=== PATIENT | female | born 1935 | race Caucasian/White ===

== ENCOUNTER 2016-06-24 08:27 | Day surgery (SDC) | payer MEDICARE ==
[~2016-06-24 08:27] MED LIST: DIPRIVAN 200 MG/20 ML IV ONE; Ketamine HCl 50 MG/ML IV ONE
--- NOTE | 2016-06-24 08:49 | HP ---
DATE OF SURGERY: 06/24/2016 HISTORY OF PRESENT ILLNESS: The patient is an 81 year-old with some upper esophageal dysphagia, trouble swallowing recently, in need of follow up upper endoscopy possible dilatation. She was cleared cardiac-matta by Dr. Coon. PAST MEDICAL HISTORY: Chronic obstructive pulmonary disease, hypercholesterolemia, hypertension, diabetes, coronary artery disease. She had a prior myocardial infarction years ago. MEDICATIONS: Plavix, metoprolol, pantoprazole, NovoLog, NitroStat PRN, Metformin, lisinopril, Glyburide, carvedilol, atorvastatin, aspirin, Albuterol inhaler. ALLERGIES: NKDA. FAMILY HISTORY: Hypertension, heart disease, diabetes. SOCIAL HISTORY: Former smoker. No recent smoking. No alcohol abuse. REVIEW OF SYSTEMS: Twelve systems reviewed per admission assessment. Thyroid nodule that has been followed by ultrasound, had prior benign biopsy. Benign follicular cyst. Stable ultrasound. She is not interested in any intervention regarding her thyroid nodule. Otherwise twelve systems reviewed. No chest pain or palpitations. She has B12 injections. PHYSICAL EXAMINATION: GENERAL: No acute distress. HEENT: Sclerae nonicteric. NECK: No JVD. No thyromegaly. CHEST: Breath sounds symmetrical. No audible wheeze. CVS: Regular rate and rhythm. ABDOMEN: Soft, nontender, nondistended. EXTREMITIES: No significant edema. NEURO: Alert, moving extremities grossly symmetrically. IMPRESSION: Dysphagia upper esophagus. Risks and benefits of EGD, possible biopsy, possible dilatation. Risks and benefits explained in detail including but not limited to bleeding or infection, small risk of bowel injury or perforation possibly requiring open procedure, small risk of missed or nondiagnosis or incomplete exam possibly requiring other studies. She also understands the possibility that even with dilatation may fail to improve her symptoms and may need repeat dilatation down the road. She understands and agrees to the planned procedure, will proceed with EGD possible dilatation as an outpatient.
[2016-06-24] MEDS ORDERED: Xopenex 1.25 MG/0.5 ML UD NEBULE IH ONE ×2 (08:59→09:14)
[2016-06-24] MEDS ORDERED: Sodium Chloride 3 ML UD NEBULES IH ONE (08:59)
[2016-06-24] MEDS ORDERED: Lactated Ringers 1,000 ML IV ONE (08:59)
[2016-06-24] MEDS ORDERED: Lactated Ringers 1,000 ML IV SCH (09:30)
[2016-06-24 11:54] VITALS: BP 123/71; PULSE 77; O2SAT 90
--- NOTE | 2016-06-25 12:51 | OP ---
SURGERY DATE/TIME: 06/24/2016 1022 PREOPERATIVE DIAGNOSIS: Dysphagia. POSTOPERATIVE DIAGNOSES: 1) Mild gastritis. 2) Small hiatal hernia. 3) Schatzki's ring distal esophagus. 4) Proximal esophageal narrowing as well. PROCEDURES: 1) EGD with cold biopsy of the antrum to evaluate for Helicobacter pylori. 2) Esophageal balloon dilatation distal esophagus (size 20 balloon dilator). 3) Esophageal dilatation proximal esophagus (size 20 balloon dilator). SURGEON: Dr. Tj Murphy. ANESTHESIA: MAC. ESTIMATED BLOOD LOSS: Minimal. INDICATIONS: As noted above. Risks and benefits explained in detail and not limited to and consent obtained. DESCRIPTION OF PROCEDURE AND FINDINGS: The patient was taken to the endoscopy room. She denied any further questions. MAC anesthesia induced. Bite block positioned. Video gastroscope easily passed down the esophagus through the patent pylorus. It should be noted there is a narrowed area. She is having symptoms passing down through the esophagus. The scope was able to be passed through here. She was having symptoms and this was narrowed. It was felt she would benefit from dilatation procedure. Additionally in the more distal esophagus she had Schatzki's ring just below the gastroesophageal junction. The gastroesophageal junction is about 34 cm. Otherwise there were no signs of any Morales's. No signs of esophagitis. The scope was able to be passed down through the patent pylorus to the junction of the second and third portion of the duodenum. Duodenum and duodenal bulb grossly unremarkable. Back in the stomach she had some mild gastritis. Cold biopsy taken of the antrum for YASEMIN-test. Otherwise there were no signs of any ulcers or any other mucosal lesions. On retroflexion there is a very small slight hiatal hernia possibly 1.0 to 1.5 cm. Otherwise no signs of any other mucosal lesions. The scope was carefully withdrawn. Gastroesophageal junction 34 cm. The patient did have Schatzki's ring. It was felt she would benefit from balloon dilatation. The balloon catheter was carefully inserted back in the stomach and then pulled back up to the distal esophagus Schatzki's ring area. It was then inflated to size 19 balloon dilator about 45 seconds to a minute and then inflated up to size 20 balloon dilator for about 2 minutes and then withdrawn. The balloon dilator was then pulled up to the narrowed area where the patient is having most of her symptoms in the proximal esophagus. The wound is carefully inflated to size 18 initially for about 45 seconds. She coughed the balloon up once. It required deflation and passing the scope back down in the stomach. Passed the balloon catheter back down in there and gradually pulling it back up to the narrowed area proximal esophagus. It was then inflated to size 19 for about 45 seconds to a minute and then finally size 20 balloon dilator for 2 minutes. The balloon was then released. Balloon catheter removed. The scope passed back down into the stomach. Slowly and carefully withdrawn. The distal esophageal dilatation appeared to be more widely patent where the Schatzki's ring had been dilated as well as the scope pulled back up to proximal esophageal dilatation. There was superficial abrasion secondary to dilatation but no evidence of any full thickness injury secondary to wound dilatation. Both areas were much more widely patent. The scope is withdrawn. The patient tolerated the procedure well. There were no immediate complications. Findings discussed with the family out in the waiting area.
== END 2016-06-24 12:00 | disposition home or self-care (01) ==
LOC: SDC 08:27
PROVIDERS: ATTEND Surgery
PROC: 0DB68ZX Excision of Stomach, Via Natural or Artificial Opening Endoscopic, Diagnostic (ICD-10-PCS; principal; 2016-06-24)
PROC: 0D718ZZ Dilation of Upper Esophagus, Via Natural or Artificial Opening Endoscopic (ICD-10-PCS; 2016-06-24)
PROC: 0D738ZZ Dilation of Lower Esophagus, Via Natural or Artificial Opening Endoscopic (ICD-10-PCS; 2016-06-24)
DX: K29.70 Gastritis, unspecified, without bleeding (principal); K44.9 Diaphragmatic hernia without obstruction or gangrene; K22.2 Esophageal obstruction; J44.9 Chronic obstructive pulmonary disease, unspecified; E78.00 Pure hypercholesterolemia, unspecified; I10 Essential (primary) hypertension; E11.9 Type 2 diabetes mellitus without complications; Z79.4 Long term (current) use of insulin; I25.10 Atherosclerotic heart disease of native coronary artery without angina pectoris; I25.2 Old myocardial infarction; Z79.899 Other long term (current) drug therapy
CPT/HCPCS: 87081; 94640; 43239; 43249; C1726; 00740; 99100; J2704; A9270-GY

== ENCOUNTER 2016-08-26 11:20 | Inpatient (IN) | payer MEDICARE ==
[2016-08-26] MEDS ORDERED: Zithromax 500 MG/ 250 ML NaCl Premix 500 MG/250 ML IVPB IV STA (11:23)
[2016-08-26] MEDS ORDERED: PROVENTIL 2.5 MG/3 ML NEB IH ONE ×2 (11:23→11:35)
[2016-08-26] MEDS ORDERED: ROCEPHIN 1 Gm-D5w 50 ml Bag** 1 G/50 ML IVPB IV STA (11:23)
[2016-08-26] MEDS ORDERED: solu-MEDROL 125 MG IV ONE (11:23)
[2016-08-26 11:31] LABS: VBG BASE EXCESS 4.4 (-2.0-2.0); VBG CARBOXYHEMOGLOBIN 2.1 % T HGB (0.0-6.9); VBG HCO3- 31.2 meq/L (22-28); VBG O2 SATURATION 73.6 (95-100); VBG pH 7.37 (7.32-7.42)
[2016-08-26] MEDS ORDERED: ROCEPHIN 1 Gm-D5w 50 ml Bag** 1 G/50 ML IVPB IV ONE (11:42)
[2016-08-26] MEDS ORDERED: Zithromax 500 MG/ 250 ML NaCl Premix 500 MG/250 ML IVPB IV ONE (11:42)
[2016-08-26] MEDS ORDERED: solu-MEDROL 125 MG ONE (11:42)
[2016-08-26 11:51] LABS: Bilirubin NEGATIVE (NEGATIVE); Blood 50 Ery/ul (0-5); COMPLETE URINE MICROSCOPIC? YES; Collection Type CATH; Glucose NEGATIVE (NEGATIVE); Leukocyte Esterase NEGATIVE (NEGATIVE)
[2016-08-26 11:53] LABS: BASOPHIL % 0.4 % (0.0-0.4); Eosinophil % 3.1 % (0.00-5.0); Granulocytes % 65.9 % (36.0-66.0); Lymphocytes % 23.2 % (24.0-44.0); Mean Cell Volume 92.1 fl (78-100); Mean Corpuscular Hemoglobin 30.9 pg (26-32); Mean Platelet Volume 9.9 fl (6-9.5); Monocytes % 7.4 % (0.0-12.0); Platelet Count 132 K/mm3 (150-450); Red Blood Count 4.69 M/mm3 (4.1-5.4); Red Cell Distribution Width 13.8 % (11.5-14.0); White Blood Count 5.6 K/mm3 (4.0-10.5)
--- NOTE | 2016-08-26 11:58 | XRAY ---
Indication: Cough and wheezing. Comparison: May 25, 2016. Portable chest unchanged again with left base atelectasis/scarring and hilar calcified nodes. Right lung clear. Heart is not enlarged. Bony thorax intact again with mild osteopenia and degenerative changes. Impression: Stable nonacute chest with chronic features.
[2016-08-26 12:10] LABS: Bacteria FEW /HPF (NEGATIVE); Epithelial Cells FEW /HPF (FEW)
[2016-08-26 12:11] LABS: ADD URINE CULTURE? NO (NO)
[2016-08-26 12:20] LABS: ALKALINE PHOSPHATASE 71 U/L (46-116); ANION GAP 13.4 MEQ/L (5-15); BLOOD UREA NITROGEN 8 mg/dL (9-20); CHLORIDE 101 mEq/L (98-107); Carbon Dioxide 29.5 mEq/L (21-32); Glucose 154 MG/DL (70-110); MAGNESIUM 1.5 mg/dL (1.8-2.4); Potassium 3.9 mEq/L (3.5-5.1); SGOT/AST 16 U/L (15-37); SGPT/ALT 8 U/L (12-78); SODIUM 140 mEq/L (136-145); Total Protein 7.8 gm/dL (6.4-8.2)
--- NOTE | 2016-08-26 12:52 | ERPHSYRPT ---
- History of Present Illness Time Seen by Provider: 08/26/16 11:23 Source: patient, EMS (gave ana TSO) Patient Subjective Stated Complaint: PT HERE FOR COUGH FOR 2 WEEKS, WITH LOW GRADE FEVER Triage Nursing Assessment: PT ALERT, RESP EASY, CHEST WITH WHEEZES, NO EDEMA. SKIN W/D PINK Physician History: CC: short of air Hx: 81 y/o patient of Dr Castaneda. She has hx of DM, COPD, CHF. She has increased dyspena, wheezing. She uses home oxygen. No chest pain. Some chills and has productive cough. Shortness of breathing inreasing so came to ER. Allergies/Adverse Reactions: No Known Drug Allergies Allergy (Verified 08/26/16 11:29) Home Medications: Sertraline HCl 100 mg [Zoloft 100 MG] 150 mg PO DAILY 11/12/11 [History] Atorvastatin Calcium 20 mg PO HS 12/20/13 [History] Lisinopril 5 mg PO DAILY 12/20/13 [History] Carvedilol 3.125 mg [Coreg 3.125 MG] 2 tab PO BID 02/17/15 [History] Clopidogrel Bisulfate 75 mg [PLAVIX 75 MG Tablet] 75 mg PO HS 02/17/15 [ History] Metformin HCl 500 mg [Glucophage 500 MG] 500 mg PO BID 02/17/15 [History] Pantoprazole 20 mg [Protonix 20MG Tablet] 20 mg PO DAILY 02/17/15 [History ] Albuterol 8 gm Mdi Hfa [Ventolin Hfa MDI] 8 gm IH QID PRN 04/05/15 [ History] Aspirin 1 tablet PO DAILY 06/24/16 [History] Metoclopramide HCl 10 mg [Reglan 10 MG] 1 tablet PO BID 06/24/16 [History] Pantoprazole 20 mg [Protonix 20MG Tablet] 1 tablet PO DAILY 06/24/16 [ History] Potassium Chloride 10 Meq Tab* [Klor Con 10 MEQ] 1 tablet PO DAILY 06/24/16 [ History] Sertraline HCl [Zoloft] 150 mg PO DAILY 06/24/16 [History] Hx Tetanus, Diphtheria Vaccination/Date Given: Yes Hx Influenza Vaccination/Date Given: Yes Hx Pneumococcal Vaccination/Date Given: Yes Immunizations Up to Date: Yes - Review of Systems Constitutional: Chills, Fatigue, Malaise, Weakness, No Fever Eyes: No Symptoms Ears, Nose, & Throat: No Symptoms Respiratory: Cough, Dyspnea Cardiac: No Chest Pain Abdominal/Gastrointestinal: No Abdominal Pain, No Nausea, No Vomiting, No Diarrhea Genitourinary Symptoms: No Dysuria Skin: No Rash Neurological: No Headache All Other Systems: Reviewed and Negative - Past Medical History Pertinent Past Medical History: Yes Neurological History: TIA ENT History: Cataracts Cardiac History: Coronary Artery Disease, High Cholesterol, Hypertension, Myocardial Infarction ([place]) Respiratory History: Asthma, COPD, Emphysema Endocrine Medical History: Diabetes Type II Musculoskeletal History: Osteoarthritis, Osteoporosis GI Medical History: GERD, GI Bleed, Ulcer History: No Pertinent History Psycho-Social History: Anxiety, Depression Female Reproductive Disorders: No Pertinent History, Breast Cancer Other Medical History: states dr borges removed breast ca from both breasts 25 yrs ago; lumps removed from bilateral breasts. - Past Surgical History Past Surgical History: Yes Neuro Surgical History: No Pertinent History Cardiac: Cardiac Catheterization, Cardiac Stent Respiratory: No Pertinent History Gastrointestinal: Appendectomy, Other Genitourinary: No Pertinent History Musculoskeletal: Orthopedic Surgery, Other Female Surgical History: Lumpectomy, Other Other Surgical History: juan alberto ovaries removed,juan alberto cataracts with implants, knee surgery for torn meniscus. right eye phacoemulsification with lens implant; abdominal surgery involving bleeding vein repair; bunion removal left foot. , left knee cap tumors removed - Social History Smoking Status: Former smoker How long have you smoked: 10 years Exposure to second hand smoke: No Drug Use: none Patient Lives Alone: No - Female History Hx Last Menstrual Period: POST - Nursing Vital Signs Nursing Vital Signs: Initial Vital Signs Temperature Source Rectal Pulse Rate 71 Respiratory Rate 16 Blood Pressure [] 135/64 Pain Intensity 0 - Physical Exam General Appearance: alert, other (mildly breathless) Eye Exam: PERRL/EOMI Neck Exam: normal inspection, non-tender, supple Respiratory Exam: wheezing (diffusely) Cardiovascular/Chest Exam: regular rate/rhythm Abdominal/Gastrointestinal Exam: soft, No tenderness, No distention Extremity Exam: no pedal edema Neurologic Exam: alert, oriented x 3, cooperative, sensation nml, No motor deficits Skin Exam: warm, dry, No rash SpO2 Interpretation: normal SpO2: 96 Oxygen Delivery: Room Air - Course Nursing assessment & vital signs reviewed: Yes EKG Interpreted by Me: RATE (81), Sinus Rhythm, 1st degree AV Block, Non- specific ST Changes - Radiology Exams cxr X-ray Interpretation: Teleradiologist Report, Negative (stable COPD) Ordered Tests: Active Orders 24 hr Category Date Time Status Food Service Team Member STAT Care 08/26/16 11:23 Active Cath for Specimen-Straight STAT Care 08/26/16 11:23 Active EKG-ER Only STAT Care 08/26/16 11:23 Active IV Insertion STAT Care 08/26/16 11:23 Active Oxygen-ED Only NASAL CANNULA 2 lpm Care 08/26/16 11:23 Active CHEST 1 VIEW (PORTABLE) Stat Exams 08/26/16 11:23 Completed BLOOD CULTURE Stat Lab 08/26/16 11:48 Received CBC W DIFF Stat Lab 08/26/16 11:48 Completed CMP Stat Lab 08/26/16 11:48 Completed Lactic Acid Stat Lab 08/26/16 11:30 Completed MAGNESIUM Stat Lab 08/26/16 11:48 Completed UA W/ MICROSCOPIC Stat Lab 08/26/16 11:48 Completed VENOUS BLOOD GAS Stat Lab 08/26/16 11:30 Completed Respiratory Nebulizer STAT RT 08/26/16 11:25 Completed Medication Summary Discontinued Medications Generic Name Dose Route Start Last Admin Trade Name Freq PRN Reason Stop Dose Admin Albuterol Sulfate 2.5 mg 08/26/16 11:23 08/26/16 11:39 Proventil 2.5 Mg/3 Ml Neb IH 08/26/16 11:24 2.5 mg STAT ONE Administration Albuterol Sulfate Confirm 08/26/16 11:35 Proventil 2.5 Mg/3 Ml Neb Administered 08/26/16 11:36 Dose 2.5 mg IH .STK-MED ONE Ceftriaxone Sodium/Dextrose 1 g in 50 mls @ 100 mls/hr 08/26/16 11:23 11:49 Rocephin 1 Gm-D5w 50 Ml Bag IV 08/26/16 11:52 100 mls/hr STAT STA Administration Azithromycin 500 mg in 250 mls @ 250 mls/hr 08/26/16 11:23 08/26/16 12:02 Zithromax 500 Mg/ 250 Ml Nacl Premix IV 08/26/16 12:22 250 mls/hr STAT STA Administration Azithromycin Confirm 08/26/16 11:42 Zithromax 500 Mg/ 250 Ml Nacl Premix Administered 08/26/16 11:43 Dose 500 mg in 250 mls @ ud IV .STK-MED ONE Ceftriaxone Sodium/Dextrose Confirm 08/26/16 11:42 Rocephin 1 Gm-D5w 50 Ml Bag Administered 08/26/16 11:43 Dose 1 g in 50 mls @ ud IV .STK-MED ONE Methylprednisolone Sodium Succinate 125 mg 08/26/16 11:23 08/26/16 11:50 Solu-Medrol 125 Mg IV 08/26/16 11:24 125 mg STAT ONE Administration Methylprednisolone Sodium Succinate Confirm 08/26/16 11:42 Solu-Medrol 125 Mg Administered 08/26/16 11:43 Dose 125 mg .ROUTE .STK-MED ONE Lab/Rad Data: Laboratory Result Diagrams 08/26/16 11:48 08/26/16 11:48 Laboratory Results 08/26/16 08/26/16 08/26/16 Range/Units 11:48 11:48 11:48 WBC 5.6 (4.0-10.5) K/mm3 RBC 4.69 (4.1-5.4) M/mm3 Hgb 14.5 (12.0-16.0) gm/dl Hct 43.2 (35-47) % MCV 92.1 (78-100) fl MCH 30.9 (26-32) pg MCHC 33.6 (32-36) g/dl RDW 13.8 (11.5-14.0) % Plt Count 132 L (150-450) K/mm3 MPV 9.9 H (6-9.5) fl Gran % 65.9 (36.0-66.0) % Lymphocytes % 23.2 L (24.0-44.0) % Monocytes % 7.4 (0.0-12.0) % Eosinophils % 3.1 (0.00-5.0) % Basophils % 0.4 (0.0-0.4) % Basophils # 0.02 (0-0.4) VBG pH (7.32-7.42) VBG pCO2 at Pat Temp (42-55) mm/Hg VBG pO2 at Pat Temp (25-40) mm/Hg VBG HCO3 (22-28) meq/L VBG O2 Sat (Dorothea) (95-100) VBG Base Excess (-2.0-2.0) VBG Hemoglobin VBG Carboxyhemoglobin (0.0-6.9) % T HGB POC Potassium (3.5-5.1) Sodium 140 (136-145) mEq/L Potassium 3.9 (3.5-5.1) mEq/L Chloride 101 (98-107) mEq/L Carbon Dioxide 29.5 (21-32) mEq/L Anion Gap 13.4 (5-15) MEQ/L BUN 8 L (9-20) mg/dL Creatinine 0.60 (0.55-1.30) mg/dl Estimated GFR > 60 ML/MIN Glucose 154 H (70-110) MG/DL Lactic Acid (0.4-2.0) Calcium 9.2 (8.5-10.1) mg/dL Magnesium 1.5 L (1.8-2.4) mg/dL Total Bilirubin 0.90 (0.2-1.0) mg/dL AST 16 (15-37) U/L ALT 8 L (12-78) U/L Alkaline Phosphatase 71 (46-116) U/L Serum Total Protein 7.8 (6.4-8.2) gm/dL Albumin 4.0 (3.4-5.0) g/dL Ur Collection Type CATH Urine Color YELLOW (YELLOW) Urine Appearance CLEAR (CLEAR) Urine pH 5.0 (5-6) Ur Specific Rector 1.010 (1.005-1.025) Urine Protein NEGATIVE (Negative) Urine Ketones NEGATIVE (NEGATIVE) Urine Blood 50 (0-5) Keith/ul Urine Nitrite NEGATIVE (NEGATIVE) Urine Bilirubin NEGATIVE (NEGATIVE) Urine Urobilinogen NORMAL (0-1) mg/dL Ur Leukocyte Esterase NEGATIVE (NEGATIVE) Urine Microscopic RBC 5-10 (0-2) /HPF Ur Epithelial Cells FEW (FEW) /HPF Urine Bacteria FEW (NEGATIVE) /HPF Urine Glucose NEGATIVE (NEGATIVE) mg/dL Specimen Received 08/26/16 1145 08/26/16 Range/Units 11:30 WBC (4.0-10.5) K/mm3 RBC (4.1-5.4) M/mm3 Hgb (12.0-16.0) gm/dl Hct (35-47) % MCV (78-100) fl MCH (26-32) pg MCHC (32-36) g/dl RDW (11.5-14.0) % Plt Count (150-450) K/mm3 MPV (6-9.5) fl Gran % (36.0-66.0) % Lymphocytes % (24.0-44.0) % Monocytes % (0.0-12.0) % Eosinophils % (0.00-5.0) % Basophils % (0.0-0.4) % Basophils # (0-0.4) VBG pH 7.37 (7.32-7.42) VBG pCO2 at Pat Temp 54 (42-55) mm/Hg VBG pO2 at Pat Temp 38 (25-40) mm/Hg VBG HCO3 31.2 H* (22-28) meq/L VBG O2 Sat (Dorothea) 73.6 L (95-100) VBG Base Excess 4.4 H (-2.0-2.0) VBG Hemoglobin 15.0 VBG Carboxyhemoglobin 2.1 (0.0-6.9) % T HGB POC Potassium 4.0 (3.5-5.1) Sodium (136-145) mEq/L Potassium (3.5-5.1) mEq/L Chloride (98-107) mEq/L Carbon Dioxide (21-32) mEq/L Anion Gap (5-15) MEQ/L BUN (9-20) mg/dL Creatinine (0.55-1.30) mg/dl Estimated GFR ML/MIN Glucose (70-110) MG/DL Lactic Acid 1.0 (0.4-2.0) Calcium (8.5-10.1) mg/dL Magnesium (1.8-2.4) mg/dL Total Bilirubin (0.2-1.0) mg/dL AST (15-37) U/L ALT (12-78) U/L Alkaline Phosphatase (46-116) U/L Serum Total Protein (6.4-8.2) gm/dL Albumin (3.4-5.0) g/dL Ur Collection Type Urine Color (YELLOW) Urine Appearance (CLEAR) Urine pH (5-6) Ur Specific Rector (1.005-1.025) Urine Protein (Negative) Urine Ketones (NEGATIVE) Urine Blood (0-5) Keith/ul Urine Nitrite (NEGATIVE) Urine Bilirubin (NEGATIVE) Urine Urobilinogen (0-1) mg/dL Ur Leukocyte Esterase (NEGATIVE) Urine Microscopic RBC (0-2) /HPF Ur Epithelial Cells (FEW) /HPF Urine Bacteria (NEGATIVE) /HPF Urine Glucose (NEGATIVE) mg/dL Specimen Received - Progress Progress Note: 08/26/16 12:51 She was given nebs and abtx. Paged Dr Castaneda for admission. 08/26/16 13:[address] Castaneda for observation. Counseled pt/family regarding: lab results, diagnosis, need for follow-up, rad results - Departure Time of Disposition: 13:07 Departure Disposition: Observation Clinical Impression: COPD exacerbation Condition: Stable Critical Care Time: No Referrals: HAMLET CASTANEDA MD [Primary Care Provider] -
[2016-08-26] MEDS ORDERED: TYLENOL 325 MG PO PRN (13:24)
[2016-08-26] MEDS: DUONEB 0.5-3 MG/3 ml Neb IH SCH ×3 (15:36→23:12)
[2016-08-26] MEDS: NovoLOG Insulin SQ PRN ×2 (16:28→21:32)
[2016-08-26] MEDS: Reglan 10 MG PO SCH (16:28)
--- NOTE | 2016-08-26 16:33 | PCM.HP ---
History of Present Illness - Chief Complaint Chief Complaint: COPD exacerbation, diabetes History of Present Illness: is a 81 year old female who presented to the ER with a 2 day history of progressively worsening shortness of breath and cough. She felt very short of breath and was unable to breath well so called for an ambulance today. She denies fever, has thick sputum and is unable to produce much sputum. - Review of Systems Constitutional: No Fever, No Chills Respiratory: Cough, Short Of Breath, Wheezing Cardiac: No Chest Pain, No Edema, No Syncope Genitourinary Symptoms: No Dysuria Skin: No Rash All Other Systems: Reviewed and Negative Medications & Allergies Home Medications: Home Medication List Lisinopril 5 mg PO BID 12/20/13 [History Confirmed 08/26/16] Clopidogrel Bisulfate 75 mg [PLAVIX 75 MG Tablet] 75 mg PO HS 02/17/15 [ History Confirmed 08/26/16] Metformin HCl 500 mg [Glucophage 500 MG] 500 mg PO BID 02/17/15 [History Confirmed 08/26/16] Pantoprazole 20 mg [Protonix 20MG Tablet] 20 mg PO DAILY 02/17/15 [ History Confirmed 08/26/16] Albuterol 8 gm Mdi Hfa [Ventolin Hfa MDI] 8 gm IH QID PRN 04/05/15 [ History Confirmed 08/26/16] Aspirin 1 tablet PO DAILY 06/24/16 [History Confirmed 08/26/16] Metoclopramide HCl 10 mg [Reglan 10 MG] 1 tablet PO BID 06/24/16 [History Confirmed 08/26/16] Potassium Chloride 10 Meq Tab* [Klor Con 10 MEQ] 1 tablet PO DAILY 06/24/16 [ History Confirmed 08/26/16] Sertraline HCl [Zoloft] 150 mg PO DAILY 06/24/16 [History Confirmed 08/26/16] Glyburide 5 mg [Micronase 5 MG] 5 mg PO DAILY 08/26/16 [History Confirmed 08/26/16] Allergies/Adverse Reactions: Allergies Allergy/AdvReac Type Severity Reaction Status Date / Time No Known Drug Allergies Allergy Verified 08/26/16 11:29 - Past Medical History Past Medical History: Yes Neurological History: TIA ENT History: Cataracts Cardiac History: Coronary Artery Disease, High Cholesterol, Hypertension, Myocardial Infarction ([place]) Respiratory History: Asthma, COPD, Emphysema Endocrine Medical History: Diabetes Type II Musculoskelatal History: Osteoarthritis, Osteoporosis GI Medical History: GERD, GI Bleed, Ulcer History: No Pertinent History Pyscho-Social History: Anxiety, Depression Reproductive Disorders: No Pertinent History Comment: states dr borges removed lumps from both breasts 25 yrs ago; lumps removed from bilateral breasts. - Female History Hx Last Menstrual Period: POST Are you now?: No - Past Surgical History Past Surgical History: Yes Neuro Surgical History: No Pertinent History Cardiac History: Cardiac Catheterization, Cardiac Stent Respiratory Surgery: No Pertinent History GI Surgical History: Appendectomy, Other Genitourinary Surgical Hx: No Pertinent History Musculskeletal Surgical Hx: Orthopedic Surgery, Other Female Surgical History: Lumpectomy, Other Other Surgical History: juan alberto ovaries removed,juan alberto cataracts with implants, knee surgery for torn meniscus; abdominal surgery involving bleeding vein repair; bunion removal left foot. ,left knee cap tumors removed - Social History Smoking Status: Never smoker How long have you smoked: 10 years Exposure to second hand smoke: Yes Alcohol: None Drug Use: none - Physical Exam Vital Signs: Vital Signs - 24 hr Temp Pulse Resp BP Pulse Ox 08/26/16 15:41 86 22 94 L 08/26/16 13:27 97.4 F 84 16 150/70 92 L 08/26/16 13:20 86 16 136/69 94 L 08/26/16 13:07 96 08/26/16 12:45 71 16 135/64 96 08/26/16 11:54 76 24 94 L 08/26/16 11:28 22 90 L 08/26/16 11:23 90 180/87 90 L Oxygen-Last 24 hours O2 Percentage 2 Liters = 28% O2 Percentage 2 Liters = 28% O2 Percentage 2 Liters = 28% General Appearance: no apparent distress, alert Eye Exam: PERRL/EOMI, eyes nml inspection Respiratory Exam: wheezing, No crackles/rales, No rhonchi Cardiovascular Exam: regular rate/rhythm, normal heart sounds, normal peripheral pulses Gastrointestinal/Abdomen Exam: soft, normal bowel sounds, No tenderness, No mass Extremity Exam: normal inspection, normal range of motion, pelvis stable Skin Exam: normal color, warm, dry, No rash Results - Other Procedures and Tests Respiratory Therapy 08/26/16 15:00 Respiratory Nebulizer Q4H Assessment/Plan (1) COPD exacerbation Current Visit: Yes Status: Acute Assessment & Plan: patient on rocephin/zithromax, IV solumedrol 80mg IV q6 hrs and duoneb treatments at this time. Code(s): J44.1 - CHRONIC OBSTRUCTIVE PULMONARY DISEASE W (ACUTE) EXACERBATION (2) Diabetes Current Visit: No Status: Acute Assessment & Plan: will treat with SSI, sugars high at this time secondary to IV solu medrol Code(s): E11.9 - TYPE 2 DIABETES MELLITUS WITHOUT COMPLICATIONS (3) DVT prophylaxis Current Visit: Yes Status: Acute Assessment & Plan: Lovenox 40mg daily ordered Code(s): QXA0603 -
[2016-08-26] MEDS: Zestril 5 MG PO SCH (21:27)
[2016-08-26] MEDS: PLAVIX 75 MG Tablet PO SCH (21:27)
[2016-08-26] MEDS: Pepcid 20 MG VIAL IV SCH (21:27)
[2016-08-26] MEDS: solu-MEDROL 125 MG IV SCH (21:30)
[2016-08-27] MEDS: DUONEB 0.5-3 MG/3 ml Neb IH SCH ×6 (03:07→23:12)
[2016-08-27 05:17] LABS: Mean Cell Volume 91.5 fl (78-100); Mean Corpuscular Hemoglobin 30.7 pg (26-32); Mean Platelet Volume 10.1 fl (6-9.5); Platelet Count 144 K/mm3 (150-450); Red Blood Count 4.49 M/mm3 (4.1-5.4); Red Cell Distribution Width 13.4 % (11.5-14.0); White Blood Count 5.4 K/mm3 (4.0-10.5)
[2016-08-27 05:43] LABS: ALBUMIN 3.9 g/dL (3.4-5.0); ALKALINE PHOSPHATASE 66 U/L (46-116); ANION GAP 15.3 MEQ/L (5-15); BLOOD UREA NITROGEN 10 mg/dL (9-20); CHLORIDE 100 mEq/L (98-107); Carbon Dioxide 28.2 mEq/L (21-32); Glucose 239 MG/DL (70-110); SGOT/AST 11 U/L (15-37); SODIUM 140 mEq/L (136-145); Total Protein 7.6 gm/dL (6.4-8.2)
[2016-08-27] MEDS: solu-MEDROL 125 MG IV SCH ×3 (05:45→21:24)
[2016-08-27 05:57] LABS: SGPT/ALT 11 U/L (12-78)
[2016-08-27] MEDS: NovoLOG Insulin SQ PRN ×4 (07:05→21:21)
[2016-08-27] MEDS: Reglan 10 MG PO SCH ×2 (07:05→16:18)
[2016-08-27 07:17] LABS: Total Cells Counted 100
[2016-08-27 07:18] LABS: ANISOCYTOSIS 1+; Platelet Estimate NORMAL (NORMAL); Poikilocytosis 1+; Polychromasia 1+
[2016-08-27] MEDS: Klor Con 10 MEQ PO SCH (08:12)
[2016-08-27] MEDS: ENOXAPARIN SODIUM SQ SCH (08:12)
[2016-08-27] MEDS: ZOLOFT 50 MG TABLET PO SCH (08:12)
[2016-08-27] MEDS: Zestril 5 MG PO SCH ×2 (08:13→21:22)
[2016-08-27] MEDS: Pepcid 20 MG VIAL IV SCH ×2 (08:13→21:24)
[2016-08-27] MEDS: Protonix 20MG Tablet PO SCH (08:13)
[2016-08-27] MEDS: ROCEPHIN 1 Gm-D5w 50 ml Bag** 1 G/50 ML IVPB IV SCH (08:13)
[2016-08-27] MEDS: ECOTRIN 81 MG PO SCH (08:13)
[2016-08-27] MEDS: Zithromax 500 MG/ 250 ML NaCl Premix 500 MG/250 ML IVPB IV SCH (08:14)
--- NOTE | 2016-08-27 09:20 | PCM.NOTE ---
Date and Time: 08/27/16913 Subjective Assessment: She reports she is feeling better than when she came into the hospital. She usually wears 3 L of oxygen at home. She reports a decreased appetite this Am. She reports her cough is productive of clear thick sputum. She lives by herself usually. She felt like she was weak and just not thinking as well when she got sick. - Review of Systems Constitutional: Weakness Eyes: No Symptoms Ears, Nose, & Throat: No Symptoms Respiratory: Cough, Short Of Breath, Wheezing Cardiac: No Symptoms Abdominal/Gastrointestinal: Appetite Changes Genitourinary Symptoms: No Symptoms Musculoskeletal: Other (middle finger with trigger finger (gets stuck down)) Skin: No Symptoms Objective Exam General Appearance: no apparent distress, alert, other (smiling, talkative) Neurologic Exam: alert, cooperative, normal mood/affect Skin Exam: normal color, warm, dry, No rash Respiratory Exam: other (scattered wheezes and decreased breath sounds at bases , equal breath sounds bilat, no crackles) Cardiovascular Exam: regular rate/rhythm, normal heart sounds, No murmur, No friction rub, No gallop Gastrointestinal/Abdomen Exam: soft, normal bowel sounds, No tenderness, No distention, No mass, No guarding Extremity Exam: other (no c/c/e, skyla hose in place) OBJECTIVE DATA Vital Signs: Vital Signs - 24 hr Temp Pulse Resp BP Pulse Ox 08/27/16 08:00 16 08/27/16 07:00 97.8 F 84 16 150/108 95 08/27/16 04:00 20 08/27/16 03:37 98.0 F 80 20 140/79 08/27/16 03:08 80 20 95 08/27/16 00:00 98.1 F 78 20 145/67 97 08/26/16 23:12 73 18 97 08/26/16 19:58 87 18 95 08/26/16 19:43 97.6 F 84 18 130/60 95 08/26/16 16:00 97.8 F 73 20 148/67 95 08/26/16 15:41 86 22 94 L 08/26/16 13:27 97.4 F 84 16 150/70 92 L 08/26/16 13:20 86 16 136/69 94 L 08/26/16 13:07 96 08/26/16 12:45 71 16 135/64 96 07/03/17 11:54 76 24 94 L 08/26/16 11:28 22 90 L 08/26/16 11:23 90 180/87 90 L Oxygen-Last 24 hours O2 Percentage 2 Liters = 28% O2 Percentage 3 Liters = 32% O2 Percentage 2 Liters = 28% O2 Percentage 3 Liters = 32% O2 Percentage 2 Liters = 28% O2 Percentage 2 Liters = 28% O2 Percentage 2 Liters = 28% O2 Percentage 2 Liters = 28% Pain Assessment - Last Documented Pain Intensity 0 Pain Scale Used 0-10 Pain Scale Intake and Output: Intake & Output 08/25/16 08/26/16 08/27/16 08/28/16 06:59 06:59 06:59 06:59 Intake Total 820 240 Output Total 1300 Balance -480 240 Weight 75.841 kg Lab Results: Accuchecks Date 08/27/16 Date 08/26/16 Time 07:07 Accucheck Value: 238 Accucheck Value: 198 Accucheck Value: 278 Lab Results-Last 24 Hours 08/27/16 08/27/16 Range/Units 04:50 04:50 WBC 5.4 (4.0-10.5) K/mm3 RBC 4.49 (4.1-5.4) M/mm3 Hgb 13.8 (12.0-16.0) gm/dl Hct 41.1 (35-47) % MCV 91.5 (78-100) fl MCH 30.7 (26-32) pg MCHC 33.6 (32-36) g/dl RDW 13.4 (11.5-14.0) % Plt Count 144 L (150-450) K/mm3 MPV 10.1 H (6-9.5) fl Segmented Neutrophils 92 H (36.0-66.0) % Lymphocytes (Manual) 7 L (24-44) % Monocytes (Manual) 1 (0.0-12.0) % Differential Comment ABNORMAL Platelet Estimate NORMAL (NORMAL) Polychromasia 1+ Poikilocytosis 1+ Anisocytosis 1+ Sodium 140 (136-145) mEq/L Potassium 4.0 (3.5-5.1) mEq/L Chloride 100 (98-107) mEq/L Carbon Dioxide 28.2 (21-32) mEq/L Anion Gap 15.3 H (5-15) MEQ/L BUN 10 (9-20) mg/dL Creatinine 0.71 (0.55-1.30) mg/dl Estimated GFR > 60 ML/MIN Glucose 239 H (70-110) MG/DL Calcium 9.3 (8.5-10.1) mg/dL Total Bilirubin 0.40 (0.2-1.0) mg/dL AST 11 L (15-37) U/L ALT 11 L (12-78) U/L Alkaline Phosphatase 66 (46-116) U/L Serum Total Protein 7.6 (6.4-8.2) gm/dL Albumin 3.9 (3.4-5.0) g/dL Assessment/Plan (1) COPD exacerbation Current Visit: Yes Status: Acute Assessment & Plan: Continue ceftriaxone and azithromycin and wean solumedrol to 60 mg IV q 8 hr. Continue breathing treatments and oxygen. Code(s): J44.1 - CHRONIC OBSTRUCTIVE PULMONARY DISEASE W (ACUTE) EXACERBATION (2) Diabetes type 2, controlled Current Visit: Yes Status: Acute Qualifiers: Diabetes mellitus complication status: without complication Assessment & Plan: Check Hgb A1C in the AM. Restart metformin. Continue sliding scale as needed. Higher blood glucose most likely due to IV steroids which I started weaning today. Her last Hgb A1C in early May was less than 6. Code(s): E11.9 - TYPE 2 DIABETES MELLITUS WITHOUT COMPLICATIONS (3) Trigger finger Current Visit: Yes Status: Acute Assessment & Plan: Most likely will need to see a hand surgeon as an outpatient. Code(s): M65.30 - TRIGGER FINGER, UNSPECIFIED FINGER
[2016-08-27] MEDS: Glucophage 500 MG PO SCH ×2 (09:41→16:18)
[2016-08-27] MEDS ORDERED: ASPIRIN PO SCH (10:00)
[2016-08-27] MEDS: PLAVIX 75 MG Tablet PO SCH (21:24)
[2016-08-28] MEDS: DUONEB 0.5-3 MG/3 ml Neb IH SCH ×6 (03:17→22:50)
[2016-08-28] MEDS: solu-MEDROL 125 MG IV SCH (06:27)
[2016-08-28] MEDS: Reglan 10 MG PO SCH ×2 (06:30→16:35)
[2016-08-28] MEDS: NovoLOG Insulin SQ PRN ×4 (07:10→21:51)
[2016-08-28] MEDS: Glucophage 500 MG PO SCH ×2 (07:10→16:35)
[2016-08-28] MEDS: ZOLOFT 50 MG TABLET PO SCH (08:11)
[2016-08-28] MEDS: Zithromax 500 MG/ 250 ML NaCl Premix 500 MG/250 ML IVPB IV SCH (08:11)
[2016-08-28] MEDS: ROCEPHIN 1 Gm-D5w 50 ml Bag** 1 G/50 ML IVPB IV SCH (08:11)
[2016-08-28] MEDS: Klor Con 10 MEQ PO SCH (08:12)
[2016-08-28] MEDS: Zestril 5 MG PO SCH ×2 (08:12→21:39)
[2016-08-28] MEDS: Protonix 20MG Tablet PO SCH (08:12)
[2016-08-28] MEDS: ENOXAPARIN SODIUM SQ SCH (08:12)
[2016-08-28] MEDS: Pepcid 20 MG VIAL IV SCH ×2 (08:12→21:39)
[2016-08-28] MEDS: ECOTRIN 81 MG PO SCH (08:12)
--- NOTE | 2016-08-28 11:52 | PCM.NOTE ---
Date and Time: 08/28/16 1151 Subjective Assessment: patient feeling shakey, very concerned about her high blood sugar. breathing is improving Objective Exam General Appearance: no apparent distress, alert Respiratory Exam: normal breath sounds, lungs clear, No respiratory distress Cardiovascular Exam: regular rate/rhythm, normal heart sounds Gastrointestinal/Abdomen Exam: soft, No tenderness, No mass OBJECTIVE DATA Vital Signs: Vital Signs - 24 hr Temp Pulse Resp BP Pulse Ox 08/28/16 11:11 82 20 98 08/28/16 11:00 98.0 F 82 20 138/72 98 08/28/16 07:27 18 08/28/16 07:24 87 20 99 08/28/16 07:00 97.9 F 76 18 151/73 98 08/28/16 03:35 97.6 F 69 19 171/89 98 08/28/16 03:17 69 19 98 08/27/16 23:12 80 20 99 08/27/16 23:00 97.8 F 80 20 139/70 99 08/27/16 19:00 97.8 F 75 19 131/63 96 08/27/16 18:42 96 H 22 98 08/27/16 16:00 18 08/27/16 15:00 98.2 F 78 18 143/75 98 08/27/16 12:00 16 Oxygen-Last 24 hours O2 Percentage 2 Liters = 28% O2 Percentage 3 Liters = 32% O2 Percentage 3 Liters = 32% O2 Percentage 2 Liters = 28% O2 Percentage 3 Liters = 32% Pain Assessment - Last Documented Pain Intensity 2 Pain Scale Used 0-10 Pain Scale Intake and Output: Intake & Output 08/25/16 08/26/16 08/27/16 08/28/16 11:59 11:59 11:59 11:59 Intake Total 1060 1950 Output Total 1750 Balance -690 1950 Lab Results: Accuchecks Date 08/28/16 Date 08/28/16 Date 08/27/16 Date 08/27/16 Time 07:30 Time 07:16 Time 16:30 Accucheck Value: 176 Accucheck Value: 176 Accucheck Value: 271 Accucheck Value: 247 Lab Results-Last 24 Hours 08/28/16 Range/Units 00:30 Hemoglobin A1c 5.9 (4.5-6.2) Assessment/Plan (1) COPD exacerbation Current Visit: Yes Status: Acute Assessment & Plan: wean steroids further, improving so likely will be able to go home in the next day or two. Code(s): J44.1 - CHRONIC OBSTRUCTIVE PULMONARY DISEASE W (ACUTE) EXACERBATION (2) Diabetes Current Visit: No Status: Resolved Assessment & Plan: wean steroids, discussed that will resolve when steroid course completed Code(s): E11.9 - TYPE 2 DIABETES MELLITUS WITHOUT COMPLICATIONS (3) DVT prophylaxis Current Visit: Yes Status: Acute Code(s): [id number] -
[2016-08-28] MEDS: solu-MEDROL 40 MG IV SCH ×2 (14:04→21:39)
[2016-08-28] MEDS: PLAVIX 75 MG Tablet PO SCH (21:39)
[2016-08-29] MEDS: DUONEB 0.5-3 MG/3 ml Neb IH SCH ×3 (02:47→10:44)
[2016-08-29] MEDS: solu-MEDROL 40 MG IV SCH (05:33)
[2016-08-29 05:34] LABS: BASOPHIL % 0.2 % (0.0-0.4); Lymphocytes % 10.3 % (24.0-44.0); Mean Cell Volume 93.6 fl (78-100); Mean Platelet Volume 9.9 fl (6-9.5); Monocytes % 5.5 % (0.0-12.0); Platelet Count 132 K/mm3 (150-450); Red Blood Count 4.05 M/mm3 (4.1-5.4); Red Cell Distribution Width 13.6 % (11.5-14.0)
[2016-08-29 05:43] LABS: Mean Corpuscular Hemoglobin 30.8 pg (26-32)
[2016-08-29 05:59] LABS: ALBUMIN 3.4 g/dL (3.4-5.0); ALKALINE PHOSPHATASE 50 U/L (46-116); ANION GAP 10.7 MEQ/L (5-15); BLOOD UREA NITROGEN 18 mg/dL (9-20); CHLORIDE 100 mEq/L (98-107); Carbon Dioxide 32.5 mEq/L (21-32); Glucose 191 MG/DL (70-110); Potassium 4.5 mEq/L (3.5-5.1); SGOT/AST 9 U/L (15-37); SGPT/ALT 7 U/L (12-78); SODIUM 139 mEq/L (136-145); Total Protein 6.5 gm/dL (6.4-8.2)
[2016-08-29 07:09] VITALS: BP 147/65
[2016-08-29] MEDS: Reglan 10 MG PO SCH (07:49)
[2016-08-29] MEDS: Glucophage 500 MG PO SCH (07:49)
[2016-08-29] MEDS: NovoLOG Insulin SQ PRN (07:52)
--- NOTE | 2016-08-29 08:20 | PCM.DS ---
Discharge Summary Date of Admission: 08/26/16 16:29 Admitting Physician: HAMLET CASTANEDA Primary Care Provider: HAMLET CASTANEDA Allergies Allergies No Known Drug Allergies Allergy (Verified 08/26/16 11:29) Hospital Summary - Hospital Course Hospital Course: patient was admitted with copd exacerbation, received IV antibiotics, steroids and nebs. cough and breathing have improved. she is stable on 2L oxygen which is her home regimen - Vitals & Intake/Output Vital Signs: Vital Signs Temperature 98.5 F 08/29/16 07:00 Pulse Rate 61 08/29/16 07:00 Respiratory Rate 22 08/29/16 07:00 Blood Pressure 147/65 08/29/16 07:00 O2 Sat by Pulse Oximetry 99 08/29/16 07:00 Oxygen-Last Documented O2 Percentage 3 Liters = 32% Intake & Output: Intake & Output 08/26/16 08/27/16 08/28/16 08/29/16 11:59 11:59 11:59 11:59 Intake Total 1060 1950 1620 Output Total 1750 2250 Balance -690 1950 -630 Weight 75.841 kg - Lab Result Diagrams: 08/29/16 05:10 08/29/16 05:10 Lab Results-Last 24 Hrs: Accuchecks Date 08/28/16 Date 08/28/16 Date 08/28/16 Time 22:00 Time 16:30 Time 11:30 Accucheck Value: 191 Accucheck Value: 257 Accucheck Value: 230 Accucheck Value: 164 Lab Results-Last 24 Hours 08/29/16 08/29/16 Range/Units 05:10 05:10 WBC 6.0 (4.0-10.5) K/mm3 RBC 4.05 L (4.1-5.4) M/mm3 Hgb 12.5 (12.0-16.0) gm/dl Hct 37.9 (35-47) % MCV 93.6 (78-100) fl MCH 30.8 (26-32) pg MCHC 33.0 (32-36) g/dl RDW 13.6 (11.5-14.0) % Plt Count 132 L (150-450) K/mm3 MPV 9.9 H (6-9.5) fl Gran % 84.0 H (36.0-66.0) % Lymphocytes % 10.3 L (24.0-44.0) % Monocytes % 5.5 (0.0-12.0) % Eosinophils % 0.0 (0.00-5.0) % Basophils % 0.2 (0.0-0.4) % Basophils # 0.01 (0-0.4) Sodium 139 (136-145) mEq/L Potassium 4.5 (3.5-5.1) mEq/L Chloride 100 (98-107) mEq/L Carbon Dioxide 32.5 H (21-32) mEq/L Anion Gap 10.7 (5-15) MEQ/L BUN 18 (9-20) mg/dL Creatinine 0.66 (0.55-1.30) mg/dl Estimated GFR > 60 ML/MIN Glucose 191 H (70-110) MG/DL Calcium 9.4 (8.5-10.1) mg/dL Total Bilirubin 0.40 (0.2-1.0) mg/dL AST 9 L (15-37) U/L ALT 7 L (12-78) U/L Alkaline Phosphatase 50 (46-116) U/L Serum Total Protein 6.5 (6.4-8.2) gm/dL Albumin 3.4 (3.4-5.0) g/dL Micro Results-Entire Visit: Accuchecks Date 08/28/16 Date 08/28/16 Date 08/28/16 Time 22:00 Time 16:30 Time 11:30 Accucheck Value: 191 Accucheck Value: 257 Accucheck Value: 230 Accucheck Value: 164 Discharge Exam General Appearance: no apparent distress, alert Respiratory Exam: normal breath sounds, lungs clear, No respiratory distress Cardiovascular Exam: regular rate/rhythm, normal heart sounds Gastrointestinal/Abdomen Exam: soft, No tenderness, No mass Extremity Exam: normal inspection, normal range of motion Final Diagnosis/Problem List - Final Discharge Diagnosis/Problem (1) COPD exacerbation Current Visit: Yes Status: Acute Assessment & Plan: home on po prednisone and nebs (2) Diabetes Current Visit: No Status: Resolved (3) DVT prophylaxis Current Visit: Yes Status: Acute - Discharge Disposition: Home, Self-Care Condition: Stable Prescriptions: New Amoxicillin/Potassium Clav [Augmentin 500-125 Tablet] 1 each PO TID #21 tablet Prednisone 20 mg [Deltasone 20 mg] 20 mg PO UD #12 tablet Continue Lisinopril 5 mg PO BID Pantoprazole 20 mg [Protonix 20MG Tablet] 20 mg PO DAILY Metformin HCl 500 mg [Glucophage 500 MG] 500 mg PO BID Clopidogrel Bisulfate 75 mg [PLAVIX 75 MG Tablet] 75 mg PO HS Albuterol 8 gm Mdi Hfa [Ventolin Hfa MDI] 8 gm IH QID PRN PRN Reason: Cough Aspirin 1 tablet PO DAILY Sertraline HCl [Zoloft] 150 mg PO DAILY Potassium Chloride 10 Meq Tab* [Klor Con 10 MEQ] 1 tablet PO DAILY Metoclopramide HCl 10 mg [Reglan 10 MG] 1 tablet PO BID Glyburide 5 mg [Micronase 5 MG] 5 mg PO DAILY Follow up with: HAMLET CASTANEDA MD [Primary Care Provider] - Forms: Patient Portal Information
[2016-08-29] MEDS: ZOLOFT 50 MG TABLET PO SCH (09:48)
[2016-08-29] MEDS: Klor Con 10 MEQ PO SCH (09:48)
[2016-08-29] MEDS: ECOTRIN 81 MG PO SCH (09:48)
[2016-08-29] MEDS: Zestril 5 MG PO SCH (09:49)
[2016-08-29] MEDS: Protonix 20MG Tablet PO SCH (09:49)
[2016-08-29] MEDS: ROCEPHIN 1 Gm-D5w 50 ml Bag** 1 G/50 ML IVPB IV SCH (09:52)
[2016-08-29] MEDS: Zithromax 500 MG/ 250 ML NaCl Premix 500 MG/250 ML IVPB IV SCH (09:52)
[2016-08-29] MEDS: ENOXAPARIN SODIUM SQ SCH (09:52)
[2016-08-29] MEDS: Pepcid 20 MG VIAL IV SCH (09:52)
[2016-08-29 10:11] VITALS: O2SAT 96
[2016-08-29 10:51] VITALS: PULSE 86
== END 2016-08-29 11:10 | disposition home health service (06) | DRG 192 ==
LOC: ED 11:20 → MED SURG 13:21 → OBSVTOIN 16:29
PROVIDERS: ADMIT Family Medicine; ATTEND Family Medicine
DX: J44.1 Chronic obstructive pulmonary disease with (acute) exacerbation (principal); E11.9 Type 2 diabetes mellitus without complications; Z79.4 Long term (current) use of insulin; I10 Essential (primary) hypertension; M81.0 Age-related osteoporosis without current pathological fracture; I25.2 Old myocardial infarction; J45.909 Unspecified asthma, uncomplicated; K21.9 Gastro-esophageal reflux disease without esophagitis; I25.10 Atherosclerotic heart disease of native coronary artery without angina pectoris; F41.8 Other specified anxiety disorders; Z86.73 Personal history of transient ischemic attack (TIA), and cerebral infarction without residual deficits; Z99.81 Dependence on supplemental oxygen; M65.30 Trigger finger, unspecified finger; Z79.899 Other long term (current) drug therapy
CPT/HCPCS: 36000; 36415; 71010; 80053; 81000; 82805; 82962; 83036; 83605; 83735; 85025; 87040; 93005; 93041; 94640; 94760; 96365; 96366; 99285; J0456; J0696; J1650; J2920; J2930; P9612; A9270-GY